=== PATIENT | female | born 1965 | race Caucasian/White ===

== ENCOUNTER 2018-07-19 06:52 | Day surgery (SDC) | payer MEDICARE ==
[~2018-07-19] VITALS: Ht 165.1 cm; Wt 81.6 kg
[2018-07-19] MEDS ORDERED: SIMETHICONE 40 MG/0.6 ML ML ONE (07:32)
[2018-07-19] MEDS ORDERED: MIDAZOLAM HCL 5 MG/5 ML VIAL ONE (07:32)
[2018-07-19] MEDS: MIDAZOLAM HCL 5 MG/5 ML VIAL ONE ×3 (08:29→08:50)
[2018-07-19] MEDS: fentaNYL CITRATE/PF 100 MCG/2 ML AMP ONE ×3 (08:29→08:50)
[2018-07-19 11:01] VITALS: BP_SYST 111
== END 2018-07-19 10:15 | disposition home or self-care (01) ==
LOC: SDS 06:52 → EDBD 06:52 → SDS 10:15
PROVIDERS: ATTEND Surgery
DX: K64.8 Other hemorrhoids (principal); K64.4 Residual hemorrhoidal skin tags; K59.00 Constipation, unspecified; K62.89 Other specified diseases of anus and rectum; K29.70 Gastritis, unspecified, without bleeding; K22.8 Other specified diseases of esophagus; Z98.890 Other specified postprocedural states
CPT/HCPCS: 36415; 43239; 45378; 87081; 88305; 88313; J2250; J3010

== ENCOUNTER 2023-05-05 11:02 | Day surgery (SDC) | payer BC ==
[~2023-05-05] VITALS: Ht 167.6 cm; Wt 81.6 kg
[2023-05-05] MEDS ORDERED: MIDAZOLAM HCL 5 MG/5 ML VIAL ONE (11:50)
[2023-05-05] MEDS ORDERED: fentaNYL CITRATE/PF 100 MCG/2 ML AMP ONE (11:50)
[2023-05-05 13:54] VITALS: O2SAT 99
[2023-05-05 14:41] VITALS: BP_SYST 129; PULSE 67; RESP 16
== END 2023-05-05 14:40 | disposition home or self-care (01) ==
LOC: SDS 11:02 → SMU 11:03 → SDS 14:40
PROVIDERS: ATTEND Surgery
DX: R10.9 Unspecified abdominal pain (principal); K29.50 Unspecified chronic gastritis without bleeding; K31.7 Polyp of stomach and duodenum; K64.8 Other hemorrhoids; K64.4 Residual hemorrhoidal skin tags; R12 Heartburn; R11.0 Nausea; K59.00 Constipation, unspecified
CPT/HCPCS: 45378; 43239; 99152; 88305; 88312; 88313; 99153; G0378; J2250; J3010